=== PATIENT | male | born 1955 | race Caucasian/White ===

== ENCOUNTER 2018-05-26 13:56 | Inpatient (IN) | payer OTHER ==
[2018-05-26] MEDS ORDERED: GELATIN SIZE 100 SPONGE (15:37)
[2018-05-26] MEDS ORDERED: POLYMYXIN/BACITRACIN 1L IRRIG (15:38)
[2018-05-26] MEDS ORDERED: NALOXONE (0.4 MG/ML) INJ IV (16:30)
[2018-05-26] MEDS ORDERED: BISACODYL 10 MG SUPP PR (16:30)
[2018-05-26] MEDS ORDERED: DIPHENHYDRAMINE 50 MG INJ IV ×2 (16:30→20:00)
[2018-05-26] MEDS ORDERED: ONDANSETRON 4 MG INJ IV ×2 (16:30→20:00)
[2018-05-26] MEDS ORDERED: ACETAMINOPHEN 325 MG TAB PO (16:30)
[2018-05-26] MEDS ORDERED: HYDROmorphONE 0.5 MG/0.5 ML SYG IV (16:30)
[2018-05-26] MEDS ORDERED: ZOLPIDEM 5 MG TAB PO (16:30)
[2018-05-26] MEDS: VANCOMYCIN 1 GM (PMX) 250 ML IVPB (17:33)
[2018-05-26] MEDS ORDERED: MIDAZOLAM 1 MG/ML 2 ML INJ (17:34)
[2018-05-26] MEDS: POLYMYXIN/BACITRACIN 1L IRRIG IRR (17:45)
[2018-05-26] MEDS ORDERED: LIDOCAINE 2% (SDV) 5 ML INJ (17:45)
[2018-05-26] MEDS ORDERED: NEOSTIGMINE 3 MG/3 ML SYRINGE ×2 (17:45→18:29)
[2018-05-26] MEDS ORDERED: MEPERIDINE 100 MG INJ (17:45)
[2018-05-26] MEDS ORDERED: PROPOFOL 20 ML (17:45)
[2018-05-26] MEDS ORDERED: SUCCINYLCHOLINE CHLORIDE 100 MG/5 ML SYG IV (17:45)
[2018-05-26] MEDS ORDERED: GLYCOPYRROLATE 0.4 MG INJ ×4 (17:45→19:57)
[2018-05-26] MEDS ORDERED: ROCURONIUM 50 MG INJ ×2 (17:45→18:29)
[2018-05-26] MEDS: HEPARIN 1000 UNITS/ML 10 ML INJ (18:52)
[2018-05-26] MEDS: THROMBIN 5000 UNIT VIAL (18:52)
[2018-05-26] MEDS: BUPIVACAINE 0.25%/EPI (MDV) 50 ML VIAL INJ (18:52)
[2018-05-26] MEDS: SURGIFOAM POWDER 1 GM KIT (18:52)
[2018-05-26] MEDS: CA CHLORIDE 10% 10 ML SYRINGE (19:12)
[2018-05-26] MEDS ORDERED: ONDANSETRON 4 MG INJ (19:57)
[2018-05-26] MEDS ORDERED: OXYCODONE/ACETAMINOPHEN (5/325) TAB PO ×2 (20:00)
[2018-05-26] MEDS ORDERED: EPHEDrine SULFATE 50 MG/5 ML SYG IV (20:00)
[2018-05-26] MEDS ORDERED: FENTAnyl 50 MCG/ML VIAL IV ×2 (20:00)
[2018-05-26] MEDS ORDERED: hydrALAzine 20 MG INJ IV (20:00)
[2018-05-26] MEDS ORDERED: HYDROmorphONE 1 MG/5 ML IV SYRINGE IV ×3 (20:00)
[2018-05-26] MEDS ORDERED: LABETALOL HCL 20MG INJ IV (20:00)
[2018-05-26] MEDS ORDERED: METOCLOPRAMIDE 10 MG INJ IV (20:00)
[2018-05-26] MEDS ORDERED: MIDAZOLAM 1 MG/ML 2 ML INJ IV (20:00)
[2018-05-26] MEDS ORDERED: MEPERIDINE 25 MG INJ IV (20:00)
[2018-05-26] MEDS: FENTAnyl 50 MCG/ML VIAL IV (20:41)
[2018-05-26] MEDS: DOCUSATE SODIUM 100 MG CAP PO (20:41)
[2018-05-26] MEDS: HYDROmorphONE 0.2 MG/ML PCA IV (20:43)
[2018-05-26] MEDS: D5W-0.45 NACL + KCL 20 MEQ 1,000 ML IV (22:22)
[2018-05-27] MEDS: TERAZOSIN 2 MG CAP PO ×2 (00:13→21:03)
[2018-05-27] MEDS: D5W-0.45 NACL + KCL 20 MEQ 1,000 ML IV (02:21)
[2018-05-27] MEDS: VANCOMYCIN 1 GM (PMX) 250 ML IVPB (03:56)
[2018-05-27] MEDS: CYCLOBENZAPRINE 10 MG TAB PO ×3 (03:56→21:03)
[2018-05-27] MEDS: CEPASTAT LOZENGE MT (03:56)
[2018-05-27 05:05] LABS: ADD MAN DIFF? NO
[2018-05-27 05:10] LABS: WHITE BLOOD COUNT 9.8 10^3/ul (4.8-10.8)
[2018-05-27 05:10] LABS: BASOPHILS % 0.2 % (0.0-2.0); EOSINOPHILS % 0.3 % (0.0-7.0); HEMATOCRIT 38.4 % (42.0-52.0); HEMOGLOBIN 12.8 g/dl (14.0-18.0); LYMPHOCYTES # 1.1 10^3/ul (0.8-2.9); LYMPHOCYTES % 10.8 % (15.0-51.0); MEAN CORPUSCULAR HEMOGLOBIN 33.8 pg (29.0-33.0); MEAN CORPUSCULAR HGB CONC 33.3 g/dl (32.0-37.0); MEAN CORPUSCULAR VOLUME 101.3 fl (82.0-101.0); MEAN PLATELET VOLUME 9.9 fl (7.4-10.4); MONOCYTE # 1.1 10^3/ul (0.3-0.9); NEUTROPHIL # 7.6 10^3/ul (1.6-7.5); NEUTROPHILS % 77.4 % (39.0-77.0); PLATELET COUNT 158 10^3/UL (140-415); RED BLOOD COUNT 3.79 10^6/ul (4.70-6.10); RED CELL DISTRIBUTION WIDTH 12.8 % (11.5-14.5)
[2018-05-27] MEDS: PANTOPRAZOLE 40 MG INJ IV (05:17)
[2018-05-27 05:38] LABS: ANION GAP 9 (5-13); BLOOD UREA NITROGEN 10 mg/dl (7-20); CALCIUM 7.9 mg/dl (8.4-10.2); CARBON DIOXIDE 26 mmol/L (21-31); CHLORIDE 105 mmol/L (97-110); CREATININE 1.03 mg/dl (0.61-1.24); Estimated GFR > 60 mL/min (>60); GLUCOSE 128 mg/dl (70-220); MAGNESIUM 2.5 mg/dl (1.7-2.5); POTASSIUM 4.6 mmol/L (3.5-5.1); SODIUM 140 mmol/L (135-144)
[2018-05-27] MEDS: CHOLECALCIFEROL 2,000 UNIT CAP PO (09:09)
[2018-05-27] MEDS: DOCUSATE SODIUM 100 MG CAP PO ×2 (09:09→21:03)
[2018-05-27] MEDS: ATENOLOL 25 MG TAB PO (09:09)
[2018-05-27] MEDS: HYDROCODONE/APAP (10/325) TAB PO ×4 (09:58→22:57)
[2018-05-27] MEDS ORDERED: CEFAZOLIN 2 GM/50 ML (PMX) 50 ML IVPB (10:00)
[2018-05-27] MEDS ORDERED: SOD CHLORIDE 0.9% 1,000 ML IV (10:00)
[2018-05-27] MEDS: BETHANECHOL 25 MG TAB PO (11:42)
[2018-05-27] MEDS: ALBUTEROL 0.5% (NEB) 2.5 MG/0.5 ML AMP NEB (11:52)
[2018-05-27] MEDS: AL HYDROX/MG HYDROX/SIMETH 30 ML CUP PO (12:43)
[2018-05-27] MEDS: BUDESONIDE (NEB) 0.5MG/2ML AMP INH (20:37)
[2018-05-28] MEDS: HYDROCODONE/APAP (10/325) TAB PO ×4 (04:42→18:17)
[2018-05-28 05:38] LABS: ADD MAN DIFF? NO
[2018-05-28 05:43] LABS: ABNORMAL IP MESSAGE 1; BASOPHILS % 0.2 % (0.0-2.0); EOSINOPHILS # 0.1 10^3/ul (0.0-0.5); EOSINOPHILS % 0.7 % (0.0-7.0); HEMATOCRIT 37.3 % (42.0-52.0); HEMOGLOBIN 12.3 g/dl (14.0-18.0); LYMPHOCYTES # 1.7 10^3/ul (0.8-2.9); LYMPHOCYTES % 16.6 % (15.0-51.0); MEAN CORPUSCULAR HEMOGLOBIN 33.2 pg (29.0-33.0); MEAN CORPUSCULAR VOLUME 100.5 fl (82.0-101.0); MONOCYTE # 1.6 10^3/ul (0.3-0.9); MONOCYTES % 15.8 % (0.0-11.0); NEUTROPHIL # 6.7 10^3/ul (1.6-7.5); PLATELET COUNT 152 10^3/UL (140-415); POSITIVE DIFF @See below; RED BLOOD COUNT 3.71 10^6/ul (4.70-6.10); RED CELL DISTRIBUTION WIDTH 12.5 % (11.5-14.5)
[2018-05-28 05:43] LABS: WHITE BLOOD COUNT 10.1 10^3/ul (4.8-10.8)
[2018-05-28] MEDS: PANTOPRAZOLE (EC) 40 MG TAB PO (06:04)
[2018-05-28 06:32] LABS: ALANINE AMINOTRANSFERASE 24 IU/L (13-69); ALBUMIN 3.6 g/dl (3.3-4.9); ALKALINE PHOSPHATASE 91 IU/L (42-121); ANION GAP 10 (5-13); ASPARTATE AMINO TRANSFERASE 40 IU/L (15-46); BILIRUBIN,INDIRECT 1.4 mg/dl (0-1.1); BILIRUBIN,TOTAL 1.4 mg/dl (0.2-1.3); BLOOD UREA NITROGEN 10 mg/dl (7-20); CALCIUM 8.3 mg/dl (8.4-10.2); CARBON DIOXIDE 28 mmol/L (21-31); CHLORIDE 99 mmol/L (97-110); Estimated GFR > 60 mL/min (>60); GLUCOSE 97 mg/dl (70-220); POTASSIUM 3.9 mmol/L (3.5-5.1); SODIUM 137 mmol/L (135-144); TOTAL PROTEIN 6.6 g/dl (6.1-8.1)
[2018-05-28] MEDS: BUDESONIDE (NEB) 0.5MG/2ML AMP INH (07:58)
[2018-05-28] MEDS: CHOLECALCIFEROL 2,000 UNIT CAP PO (08:49)
[2018-05-28] MEDS: ATENOLOL 25 MG TAB PO (08:49)
[2018-05-28] MEDS: DOCUSATE SODIUM 100 MG CAP PO (08:49)
[2018-05-28] MEDS: CYCLOBENZAPRINE 10 MG TAB PO (17:20)
== END 2018-05-28 20:00 | disposition home or self-care (01) | DRG 517 ==
LOC: SDS 13:56 → MS1 05-27 08:59 → REC 16:24 → MS1 21:50
PROC: 01NB0ZZ Release Lumbar Nerve, Open Approach (ICD-10-PCS; principal; 2018-05-26 16:30)
DX: M48.061 Spinal stenosis, lumbar region without neurogenic claudication (principal); M54.16 Radiculopathy, lumbar region; E66.9 Obesity, unspecified; Z68.32 Body mass index [BMI] 32.0-32.9, adult; I10 Essential (primary) hypertension; E55.9 Vitamin D deficiency, unspecified; N40.0 Benign prostatic hyperplasia without lower urinary tract symptoms; R05 Cough
CPT/HCPCS: 72020; 80048; 80053; 83735; 85025; 86999; 94640; 97116; 97161; 97530